=== PATIENT | male | born 1945 | race Caucasian/White ===

== ENCOUNTER → 2019-07-30 | Outpatient (CLI) | payer MEDICARE, OTHER | LOC: RAD 08:47 | DX: M16.12 Unilateral primary osteoarthritis, left hip (principal) ==

== ENCOUNTER → 2020-11-24 | Outpatient (CLI) | payer MEDICARE, OTHER | LOC: RAD 10:18 | DX: M47.816 Spondylosis without myelopathy or radiculopathy, lumbar region (principal); M25.552 Pain in left hip; Z96.643 Presence of artificial hip joint, bilateral ==

== ENCOUNTER → 2022-01-25 | Outpatient (CLI) | payer MEDICARE, OTHER | LOC: RAD 10:30 | DX: M17.0 Bilateral primary osteoarthritis of knee (principal); M76.9 Unspecified enthesopathy, lower limb, excluding foot; M11.262 Other chondrocalcinosis, left knee; M11.261 Other chondrocalcinosis, right knee ==

== ENCOUNTER → 2022-10-16 | Outpatient (CLI) | payer MEDICARE, OTHER | LOC: RAD 13:28 | DX: J18.9 Pneumonia, unspecified organism (principal) ==

== ENCOUNTER → 2023-07-12 | Day surgery (SDC) | payer MEDICARE, OTHER | LOC: MSO 08:59 | DX: Z12.11 Encounter for screening for malignant neoplasm of colon (principal); F17.220 Nicotine dependence, chewing tobacco, uncomplicated | CPT/HCPCS: G0121; 00812; J1920; J2704; J3010; J7120 ==